=== PATIENT | female | born 1965 | race Caucasian/White ===

== ENCOUNTER 2016-10-29 03:41 | Emergency (ER) | payer OTHER ==
--- NOTE | ~2016-10-29 | CR72 ---
[facility]. [facility] A Service of [facility] & [facility] RADIOLOGY TEXT RESULTS PATIENT: LOGAN MARTINEZ LOCATION: SED : 69 UNIT #: [id number] AGE: [address]: Urbano Brownlee MD SEX: F ORDER DR: [id number] [place] [id number] E MR#: [id number] Acc #: [id number] NAME: LOGAN MARTINEZ : 1965 SEX: F STUDY DATE/TIME: 10/29/2016 6:29 UNIT: SED ROOM: STUDY DESCRIPTION: CR Chest Single View Portable Attending Physician: Urbano Brownlee M.D. Ordering Physician: Brandon Auguste M.D. Primary Care Physician: Primary Care Physician No MEDICAL IMAGING REPORT This report is preliminary unless electronic signature is present. EXAM Single view chest INDICATIONS Chest pain for 1 day. FINDINGS Single portable AP view chest compared to 11/02/2015. Heart and mediastinal contours are normal. Lungs are clear. No pleural effusion. IMPRESSION No acute cardiopulmonary findings. Dictated by... Livan Olsen M.D. THIS IS AN ELECTRONICALLY VERIFIED REPORT Livan Olsen M.D. at 10/29/2016 11:16 AM ASIM/misty TD: 10/29/2016 07:11 JOB #: [id number] MEDICAL IMAGING REPORT Page 1 of 1
--- NOTE | ~2016-10-29 | EKG ---
PATIENT: LOGAN MARTINEZ UNIT #: [id number] Ventricular Rate: 85 BPM Atrial Rate: 85 BPM P-R Interval: 140 ms QRS Duration: 78 ms Q-T Interval: 358 ms QTC Calculation(Bezet): 426 ms P Ross: 8 degrees Calculated R Ross: 13 degrees Calculated T Ross: 13 degrees Diagnosis Line: Normal sinus rhythm Diagnosis Line: Normal ECG Diagnosis Line: No previous ECGs available Diagnosis Line: Confirmed by ЮЛИЯ MAGALLON MD ([id number]) on 10/30/2016 Diagnosis Line: 10:01:11 AM INTERPRETING MD: NAUN MASTERS
[~2016-10-29 03:41] MED LIST: ALLEGRA-D1 TAB.SR1 PO; GLUCOPHAGE XR500 MG PO; K-DUR20 ME1 PO; LIPITOR PO; PREDNISONE PO; PRINIVIL10 MG PO; ROBAXIN 750750 M1 DOB; ZITHROMAX PO; ZOFRAN ODT4 MG PO
[2016-10-29 04:20] LABS: BASOPHIL% 0.5 % (0-2.5); EOSINOPHIL# 0.1 X10e3 (0-0.7); EOSINOPHIL% 1.5 % (0.0-7.0); HEMATOCRIT 36.9 % (35.0-45.0); HEMOGLOBIN 12.1 gm/dL (12.0-16.0); LYMPHOCYTE# 2.4 X10e3 (1.0-3.5); MEAN CORPUSCULAR HEMOGLOBIN 27.5 PG (28-34); MEAN CORPUSCULAR HGB CONC 32.7 g/dL (30-36); MEAN PLATELET VOLUME 7.5 FL (6.5-11.5); MONOCYTE# 0.5 X10e3 (0-1.0); NEUTROPHIL# 5.8 X10e3 (1.5-7.1); PLATELET COUNT 317 X10e3 (140-420); RED CELL DISTRIBUTION WIDTH 13.2 % (11.0-15.5); WHITE BLOOD COUNT 8.9 X10e3 (4.0-10.5)
[2016-10-29 04:20] LABS: POC - CKMB <1.0 ng/mL (0.0-7.9); POC - TROPONIN <0.05 ng/mL (<=0.05)
[2016-10-29 04:21] LABS: DIFF IND NO
[2016-10-29 04:30] LABS: PROTHROMBIN TIME (PATIENT) 11.5 SECONDS (9.5-12.4)
[2016-10-29 04:37] LABS: PARTIAL THROMBOPLASTIN TIME 29.4 SECONDS (25.6-38.1)
[2016-10-29 04:39] LABS: ALBUMIN SERUM 4.2 g/dL (3.5-5.0); BILIRUBIN, DIRECT 0.1 mg/dL (0.0-0.2); BILIRUBIN,TOTAL 0.1 mg/dL (0.2-2.0); CALCIUM SERUM 9.9 mg/dL (8.4-10.2); CREATININE SERUM 0.5 mg/dL (0.6-1.4); GLOM FILT RATE Estimated 113.7 mL/min (>60); POTASSIUM 3.9 mmol/L (3.5-5.1); PROTEIN TOTAL SERUM 7.3 g/dL (6.0-8.3)
[2016-10-29 06:39] LABS: POC - CKMB <1.0 ng/mL (0.0-7.9); POC - TROPONIN <0.05 ng/mL (<=0.05)
== END 2016-10-29 07:22 | disposition home or self-care (01) ==
LOC: SED 03:41
PROVIDERS: Emergency Medicine
DX: R07.89 Other chest pain (principal); I10 Essential (primary) hypertension; E78.5 Hyperlipidemia, unspecified; E11.9 Type 2 diabetes mellitus without complications; F17.210 Nicotine dependence, cigarettes, uncomplicated; Z79.899 Other long term (current) drug therapy; Z79.84 Long term (current) use of oral hypoglycemic drugs; Z88.1 Allergy status to other antibiotic agents
CPT/HCPCS: 36415; 71010; 80048; 80076; 82553; 84484; 85025; 85379; 85610; 85730; 93005; 96374; 99284; J1885

== ENCOUNTER 2016-11-04 19:34 | Emergency (ER) | payer OTHER ==
--- NOTE | ~2016-11-04 | EKG ---
PATIENT: LOGAN MARTINEZ UNIT #: [id number] Ventricular Rate: 109 BPM Atrial Rate: 109 BPM P-R Interval: 128 ms QRS Duration: 86 ms Q-T Interval: 328 ms QTC Calculation(Bezet): 441 ms P White: 7 degrees Calculated R White: 43 degrees Calculated T White: 52 degrees Diagnosis Line: Sinus tachycardia Diagnosis Line: Otherwise normal ECG Diagnosis Line: When compared with ECG of 29-OCT-2016 03:44, Diagnosis Line: No significant change was found Diagnosis Line: Confirmed by ЮЛИЯ MAGALLON MD ([id number]) on 11/06/2016 Diagnosis Line: 10:32:29 AM INTERPRETING MD: NAUN MASTERS
--- NOTE | ~2016-11-04 | CR72 ---
[facility] A Service of [facility] RADIOLOGY TEXT RESULTS PATIENT: LOGAN MARTINEZ LOCATION: [facility] UNIT : 69 UNIT #: [id number] AGE: [address]: Jordy Cardenas MD SEX: F ORDER DR: [id number] [place], [place] [address] [id number] E MR#: [id number] Acc #: [id number] NAME: LOGAN MARTINEZ : 1965 SEX: F STUDY DATE/TIME: 11/04/2016 20:19 UNIT: [facility] ROOM: STUDY DESCRIPTION: CR Chest Single View Portable Attending Physician: Jordy Cardenas M.D. Ordering Physician: [facility] Primary Care Physician: Leigha Pepper A.P.R.N. MEDICAL IMAGING REPORT This report is preliminary unless electronic signature is present EXAM Chest x-ray single-view portable HISTORY Chest pain started a week ago, worse today. History of seasonal allergies and smoking. TECHNIQUE Single frontal portable view of the chest timed 20:19 11/04/2016 reviewed. COMPARISON STUDIES No prior. FINDINGS There is normal heart size. There is no acute-appearing parenchymal infiltrate acute congestive failure, pneumothorax, pleural effusion. IMPRESSION No active disease. Dictated by... Adelina Jackson M.D. THIS IS AN ELECTRONICALLY VERIFIED REPORT Adelina Jackson M.D. at 11/04/2016 9:33 PM SAC/pcl TD: 11/04/2016 21:24 JOB #: [id number] MEDICAL IMAGING REPORT [facility] A Service of [facility] RADIOLOGY TEXT RESULTS PATIENT: LOGAN MARTINEZ LOCATION: [facility] UN[facility] : 69 UNIT #: [id number] AGE: [address]: Jordy Cardenas MD SEX: F ORDER DR: Page 1 of 1 COPY
[2016-11-04 20:15] LABS: BASOPHIL% 0.2 % (0-2.5); EOSINOPHIL# 0.2 X10e3 (0-0.7); EOSINOPHIL% 1.3 % (0.0-7.0); HEMATOCRIT 40.6 % (35.0-45.0); HEMOGLOBIN 13.4 gm/dL (12.0-16.0); LYMPHOCYTE# 1.1 X10e3 (1.0-3.5); LYMPHOCYTE% 8.9 % (17.0-45.0); MEAN CELL VOLUME 83.4 FL (83-96); MEAN CORPUSCULAR HEMOGLOBIN 27.4 PG (28-34); MEAN CORPUSCULAR HGB CONC 32.9 g/dL (30-36); MEAN PLATELET VOLUME 7.5 FL (6.5-11.5); MONOCYTE# 0.5 X10e3 (0-1.0); MONOCYTE% 4.4 % (3.0-12.0); NEUTROPHIL# 10.3 X10e3 (1.5-7.1); NEUTROPHIL% 85.2 % (40-75); PLATELET COUNT 313 X10e3 (140-420); RED BLOOD COUNT 4.87 X10e (3.90-5.30); RED CELL DISTRIBUTION WIDTH 13.7 % (11.0-15.5); WHITE BLOOD COUNT 12.1 X10e3 (4.0-10.5)
[2016-11-04 20:28] LABS: DIFF IND NO
[2016-11-04 20:33] LABS: POC - CKMB <1.0 ng/mL (0.0-7.9); POC - TROPONIN <0.05 ng/mL (<=0.05)
[2016-11-04 20:50] LABS: ALBUMIN SERUM 4.3 g/dL (3.5-5.0); BILIRUBIN, DIRECT 0.1 mg/dL (0.0-0.2); BILIRUBIN,INDIRECT 0.6 mg/dL (0.0-0.9); BILIRUBIN,TOTAL 0.7 mg/dL (0.2-2.0); BUN/CREATININE RATIO 47.5; CALCIUM SERUM 9.2 mg/dL (8.4-10.2); CREATININE SERUM 0.4 mg/dL (0.6-1.4); GLOM FILT RATE Estimated 122.3 mL/min (>60); PROTEIN TOTAL SERUM 7.1 g/dL (6.0-8.3)
[2016-11-04 22:52] LABS: POC - CKMB <1.0 ng/mL (0.0-7.9); POC - TROPONIN <0.05 ng/mL (<=0.05)
== END 2016-11-04 23:26 | disposition home or self-care (01) ==
LOC: CED 19:34
PROVIDERS: Emergency Medicine
DX: R07.89 Other chest pain (principal); E11.9 Type 2 diabetes mellitus without complications; I10 Essential (primary) hypertension; F17.200 Nicotine dependence, unspecified, uncomplicated; Z79.899 Other long term (current) drug therapy
CPT/HCPCS: 71010; 80048; 80076; 82553; 84484; 85025; 93005; 99284

== ENCOUNTER → 2016-11-21 | Outpatient (CLI) | payer OTHER ==
[~2016-11-21] MED LIST changes: +ASPIRIN81 M2 PO; +NAPROXEN PO; +ULTRAM PO
--- NOTE | ~2016-11-21 | MY11 ---
[facility] A Service of [facility] RADIOLOGY TEXT RESULTS PATIENT: LOGAN MRATINEZ LOCATION: [facility] : 69 UNIT #: [id number] AGE: [address]: Leigha Pepper SEX: F ORDER DR: [id number] [facility] [address] [place], [place] [address] [id number] O MR#: [id number] Acc #: [id number] NAME: LOGAN MARTINEZ. : 1965 SEX: F STUDY DATE/TIME: 11/21/2016 7:56 UNIT: [facility] ROOM: STUDY DESCRIPTION: MY Mammogram Screening Dig Riley Attending Physician: Leigha Pepper A.P.R.N. Referring Physician: Leigha Pepper A.P.R.N. Ordering Physician: Leigha Pepper A.P.R.N. Primary Care Physician: Leigha Pepper A.P.R.N. MEDICAL IMAGING REPORT This report is preliminary unless electronic signature is present EXAM Bilateral digital screening mammogram DATE 11/21/2016 HISTORY 51-year-old female with no documented personal or family history of breast cancer or current complaints. Patient states her nipples are chronically inverted. COMPARISON None. This is the patient's baseline screening study. FINDINGS CC and MLO views were obtained of each breast utilizing digital technique and reviewed with an FDA-approved CAD device. Heterogeneously dense fibroglandular tissue is present bilaterally, which can limit sensitivity of mammography. No focal suspicious nodule, architectural distortion, or clustered microcalcification is identified on this examination. There is no abnormal skin thickening. IMPRESSION 1. BIRADS category 2. Benign findings. Routine bilateral screening mammogram is recommended in 1 year. Patient's over the age of 40 are entered into a reminder system with target due date for the next mammogram. BIRADS: 2 Benign findings [facility] A Service of [facility] & [facility] RADIOLOGY TEXT RESULTS PATIENT: LOGAN MARTINEZ LOCATION: [facility] : 69 UNIT #: [id number] AGE: [address]: Leigha Pepper SEX: F ORDER DR: Dictated by... Christiane Joaquin M.D. THIS IS AN ELECTRONICALLY VERIFIED REPORT Christiane Joaquin M.D. at 11/21/2016 4:35 PM CAROLYNN/dariana TD: 11/21/2016 12:05 JOB #: [id number] MEDICAL IMAGING REPORT Page 1 of 1 COPY
== END | disposition home or self-care (01) ==
LOC: CWCC 11-20 07:30
DX: Z12.31 Encounter for screening mammogram for malignant neoplasm of breast (principal)
CPT/HCPCS: G0202

== ENCOUNTER 2016-12-03 06:21 | Emergency (ER) | payer OTHER ==
--- NOTE | ~2016-12-03 | EKG ---
PATIENT: LOGAN MARTINEZ UNIT #: [id number] Ventricular Rate: 85 BPM Atrial Rate: 85 BPM P-R Interval: 146 ms QRS Duration: 80 ms Q-T Interval: 384 ms QTC Calculation(Bezet): 456 ms P [place]: -5 degrees Calculated R [place]: 29 degrees Calculated T [place]ow: 25 degrees Diagnosis Line: Normal sinus rhythm Diagnosis Line: Normal ECG Diagnosis Line: When compared with ECG of 04-NOV-2016 19:32, Diagnosis Line: No significant change was found Diagnosis Line: Confirmed by STACIE SIERRA MD ([id number]) on Diagnosis Line: 12/10/2016 8:28:32 AM INTERPRETING MD: RIGO MASTERS
[~2016-12-03 06:21] MED LIST changes: -ASPIRIN81 M2 PO; -NAPROXEN PO; -ULTRAM PO
[2016-12-03] MEDS ORDERED: ASPIRIN81 M2 PO (06:29)
[2016-12-03] MEDS ORDERED: NAPROXEN PO (06:30)
[2016-12-03 07:12] LABS: URINE SOURCE CLEAN CATCH
[2016-12-03 07:15] LABS: URINE APPEARANCE CLOUDY; URINE BLOOD 3+ (NEG); URINE COLOR YELLOW; URINE GLUCOSE NEG (NORM); URINE KETONE TRACE (NEG); URINE LEUKOCYTE ESTERASE TRACE (NEG); URINE NITRATE NEG (NEG); URINE PROTEIN 2+ (NEG); URINE SPECIFIC GRAVITY >=1.030 (1.003-1.035); URINE UROBILINOGEN 0.2 MG/DL (NORM)
[2016-12-03 07:18] LABS: MICRO INDICATED? YES; URINE BILIRUBIN NEG (NEG)
[2016-12-03 07:20] LABS: BASOPHIL# 0.1 X10e3 (0-0.3); BASOPHIL% 0.6 % (0-2.5); EOSINOPHIL# 0.1 X10e3 (0-0.7); EOSINOPHIL% 1.2 % (0.0-7.0); HEMATOCRIT 38.5 % (35.0-45.0); HEMOGLOBIN 12.6 gm/dL (12.0-16.0); LYMPHOCYTE# 2.7 X10e3 (1.0-3.5); LYMPHOCYTE% 22.3 % (17.0-45.0); MEAN CELL VOLUME 82.9 FL (83-96); MEAN CORPUSCULAR HEMOGLOBIN 27.1 PG (28-34); MEAN CORPUSCULAR HGB CONC 32.7 g/dL (30-36); MEAN PLATELET VOLUME 7.8 FL (6.5-11.5); MONOCYTE# 0.7 X10e3 (0-1.0); MONOCYTE% 5.7 % (3.0-12.0); NEUTROPHIL# 8.5 X10e3 (1.5-7.1); NEUTROPHIL% 70.2 % (40-75); PLATELET COUNT 347 X10e3 (140-420); RED BLOOD COUNT 4.65 X10e (3.90-5.30); RED CELL DISTRIBUTION WIDTH 14.1 % (11.0-15.5); WHITE BLOOD COUNT 12.1 X10e3 (4.0-10.5)
[2016-12-03 07:21] LABS: DIFF IND NO
[2016-12-03 07:23] LABS: CULTURE INDICATED? YES; URINE BACTERIA 4+ (NEG); URINE RBC 100-200 /[HPF] (0-2); URINE SQUAMOUS EPITHELIAL CELL MANY /[HPF]
[2016-12-03 07:35] LABS: ALBUMIN SERUM 4.8 g/dL (3.5-5.0); BILIRUBIN, DIRECT 0.4 mg/dL (0.0-0.2); BILIRUBIN,INDIRECT 1.2 mg/dL (0.0-0.9); BILIRUBIN,TOTAL 1.6 mg/dL (0.2-2.0); BUN/CREATININE RATIO 12.14; CALCIUM SERUM 9.3 mg/dL (8.4-10.2); CREATININE SERUM 1.4 mg/dL (0.6-1.4); POTASSIUM 4.5 mmol/L (3.5-5.1); PROTEIN TOTAL SERUM 7.7 g/dL (6.0-8.3)
== END 2016-12-03 08:17 | disposition home or self-care (01) ==
LOC: SED 06:21
PROVIDERS: Emergency Medicine
DX: N39.0 Urinary tract infection, site not specified (principal); R42 Dizziness and giddiness; E11.9 Type 2 diabetes mellitus without complications; I10 Essential (primary) hypertension; Z98.51 Tubal ligation status; F17.200 Nicotine dependence, unspecified, uncomplicated; Z79.899 Other long term (current) drug therapy; Z79.82 Long term (current) use of aspirin
CPT/HCPCS: 36415; 80048; 80076; 81003; 83690; 85025; 87086; 93005; 96361; 96374; 96375; 99284; J0696; J2405

== ENCOUNTER 2016-12-30 18:28 | Emergency (ER) | payer OTHER ==
[~2016-12-30 18:28] MED LIST changes: +ASPIRIN81 M2 PO; +NAPROXEN PO
[2016-12-30 19:44] LABS: URINE SOURCE CLEAN CATCH
[2016-12-30 19:46] LABS: BASOPHIL% 0.4 % (0-2.5); EOSINOPHIL# 0.2 X10e3 (0-0.7); EOSINOPHIL% 1.9 % (0.0-7.0); HEMATOCRIT 37.5 % (35.0-45.0); HEMOGLOBIN 12.5 gm/dL (12.0-16.0); LYMPHOCYTE% 20.6 % (17.0-45.0); MEAN CELL VOLUME 82.2 FL (83-96); MEAN CORPUSCULAR HEMOGLOBIN 27.3 PG (28-34); MEAN CORPUSCULAR HGB CONC 33.2 g/dL (30-36); MEAN PLATELET VOLUME 7.5 FL (6.5-11.5); MONOCYTE# 0.6 X10e3 (0-1.0); NEUTROPHIL# 7.1 X10e3 (1.5-7.1); NEUTROPHIL% 71.1 % (40-75); PLATELET COUNT 332 X10e3 (140-420); RED BLOOD COUNT 4.57 X10e (3.90-5.30); RED CELL DISTRIBUTION WIDTH 14.6 % (11.0-15.5)
[2016-12-30 19:47] LABS: MICRO INDICATED? YES; URINE APPEARANCE CLEAR; URINE BILIRUBIN NEG (NEG); URINE BLOOD 1+ (NEG); URINE COLOR YELLOW; URINE GLUCOSE NEG (NORM); URINE KETONE NEG (NEG); URINE LEUKOCYTE ESTERASE NEG (NEG); URINE NITRATE NEG (NEG); URINE PROTEIN NEG (NEG); URINE SPECIFIC GRAVITY >=1.030 (1.003-1.035); URINE UROBILINOGEN 0.2 MG/DL (NORM)
[2016-12-30 19:48] LABS: DIFF IND NO
[2016-12-30 19:53] LABS: CULTURE INDICATED? NO; URINE BACTERIA NEG (NEG); URINE HYALINE CAST 0-2 /[HPF]; URINE MUCUS PRESENT; URINE SQUAMOUS EPITHELIAL CELL OCCAS /[HPF]
[2016-12-30 19:57] LABS: ALBUMIN SERUM 4.4 g/dL (3.5-5.0); ALKALINE PHOSPHATASE 63 U/L (32-92); ALT (SGPT) 13 U/L (10-40); AMYLASE 41 U/L (0-46); AST (SGOT) 14 U/L (10-42); BILIRUBIN,TOTAL 0.2 mg/dL (0.2-2.0); BLOOD UREA NITROGEN 15 mg/dL (9-23); CALCIUM SERUM 9.1 mg/dL (8.4-10.2); CARBON DIOXIDE 24 mmol/L (22-31); CHLORIDE 103 mmol/L (100-111); CREATININE SERUM 0.6 mg/dL (0.6-1.4); GLUCOSE FASTING 144 mg/dL (70-110); LIPASE 35 U/L (22-51); POTASSIUM 4.3 mmol/L (3.5-5.1); PROTEIN TOTAL SERUM 7.4 g/dL (6.0-8.3); SODIUM 135 mmol/L (135-145)
[2016-12-30 19:58] LABS: BILIRUBIN, DIRECT <0.1 mg/dL (0.0-0.2); BILIRUBIN,INDIRECT 0.1 mg/dL (0.0-0.9)
== END 2016-12-30 20:20 | disposition home or self-care (01) ==
LOC: SED 18:28
PROVIDERS: Student in an Organized Health Care Education/Training Program
DX: R11.2 Nausea with vomiting, unspecified (principal); R19.7 Diarrhea, unspecified; E11.9 Type 2 diabetes mellitus without complications; E78.5 Hyperlipidemia, unspecified; F17.200 Nicotine dependence, unspecified, uncomplicated; Z79.82 Long term (current) use of aspirin; Z79.899 Other long term (current) drug therapy
CPT/HCPCS: 36415; 80048; 80076; 81003; 82150; 83690; 85025; 96361; 96374; 96375; 99284; C9113; J2405

== ENCOUNTER 2017-01-21 03:12 | Emergency (ER) | payer OTHER ==
[~2017-01-21] VITALS: Ht 167.6 cm; Wt 83.9 kg
--- NOTE | ~2017-01-21 | EKG ---
PATIENT: LOGAN MARTINEZ UNIT #: [id number] Ventricular Rate: 85 BPM Atrial Rate: 85 BPM P-R Interval: 136 ms QRS Duration: 82 ms Q-T Interval: 358 ms QTC Calculation(Bezet): 426 ms P [place]: -3 degrees Calculated R [place]: 42 degrees Calculated T [place]: 42 degrees Diagnosis Line: Normal sinus rhythm Diagnosis Line: Normal ECG Diagnosis Line: When compared with ECG of 03-DEC-2016 07:39, Diagnosis Line: No significant change was found Diagnosis Line: Confirmed by STACIE SIERRA MD ([id number]) on Diagnosis Line: 01/21/2017 2:15:23 PM INTERPRETING MD: RIGO MASTERS
--- NOTE | ~2017-01-21 | CR2 ---
[facility] A Service of [facility] RADIOLOGY TEXT RESULTS PATIENT: LOGAN MARTINEZ LOCATION: SED : 69 UNIT #: [id number] AGE: [address]: Moshe Ponce MD SEX: F ORDER DR: [id number] [place] [id number] E MR#: [id number] Acc #: [id number] NAME: LOGAN MARTINEZ : 1965 SEX: F STUDY DATE/TIME: 01/21/2017 4:21 UNIT: SED ROOM: STUDY DESCRIPTION: CR Abdomen Acute Series Attending Physician: Moshe Ponce M.D. Ordering Physician: Moshe Ponce M.D. Primary Care Physician: Leigha Pepper A.P.R.N. MEDICAL IMAGING REPORT This report is preliminary unless electronic signature is present. EXAMINATION Acute abdominal series. DATE 01/21/2017 HISTORY 51-year-old female with mid abdominal pain, throat pain, nausea, and vomiting since yesterday. COMPARISON AP portable chest, 11/04/2016. No prior abdominal imaging at this institution for comparison. FINDINGS No acute airspace disease. Heart size within normal limits. No pleural effusion or pneumothorax. Lumbar levoscoliosis. Nonspecific nonobstructive bowel gas pattern. No pneumatosis or free intraperitoneal air. Mild left hip and left sacroiliac joint degenerative change. IMPRESSION 1. No acute findings in the chest or abdomen. 2. Lumbar levoscoliosis with degenerative change of the left hip. Dictated by... Christiane Joaquin M.D. THIS IS AN ELECTRONICALLY VERIFIED REPORT Christiane Joaquin M.D. at 01/21/2017 9:[address] [facility]/leila TD: 01/21/2017 07:34 [facility] A Service [facility] RADIOLOGY TEXT RESULTS PATIENT: LOGAN MARTINEZ LOCATION: SED : 69 UNIT #: [id number] AGE: [address]: Moshe Ponce MD SEX: F ORDER DR: JOB #: [id number] MEDICAL IMAGING REPORT Page 1 of 1
[2017-01-21] MEDS ORDERED: ULTRAM PO (03:22)
[2017-01-21 03:46] LABS: BASOPHIL% 0.3 % (0-2.5); EOSINOPHIL# 0.1 X10e3 (0-0.7); EOSINOPHIL% 1.2 % (0.0-7.0); HEMATOCRIT 37.4 % (35.0-45.0); HEMOGLOBIN 12.2 gm/dL (12.0-16.0); LYMPHOCYTE# 1.9 X10e3 (1.0-3.5); LYMPHOCYTE% 15.5 % (17.0-45.0); MEAN CELL VOLUME 82.8 FL (83-96); MEAN CORPUSCULAR HEMOGLOBIN 27.1 PG (28-34); MEAN CORPUSCULAR HGB CONC 32.7 g/dL (30-36); MEAN PLATELET VOLUME 7.5 FL (6.5-11.5); MONOCYTE# 0.6 X10e3 (0-1.0); MONOCYTE% 4.6 % (3.0-12.0); NEUTROPHIL# 9.6 X10e3 (1.5-7.1); NEUTROPHIL% 78.4 % (40-75); PLATELET COUNT 314 X10e3 (140-420); RED BLOOD COUNT 4.52 X10e (3.90-5.30); RED CELL DISTRIBUTION WIDTH 14.7 % (11.0-15.5); WHITE BLOOD COUNT 12.2 X10e3 (4.0-10.5)
[2017-01-21 03:47] LABS: DIFF IND NO
[2017-01-21 04:01] LABS: BILIRUBIN,TOTAL 0.6 mg/dL (0.2-2.0); BUN/CREATININE RATIO 23.12; CALCIUM SERUM 9.4 mg/dL (8.4-10.2); CREATININE SERUM 1.6 mg/dL (0.6-1.4); GLOM FILT RATE Estimated 37.5 mL/min (>60)
[2017-01-21 04:08] LABS: POC - CKMB <1.0 ng/mL (0.0-7.9); POC - TROPONIN <0.05 ng/mL (<=0.05)
[2017-01-21 05:03] LABS: URINE SOURCE CLEAN CATCH
[2017-01-21 05:06] LABS: URINE APPEARANCE HAZY; URINE BLOOD 1+ (NEG); URINE COLOR YELLOW; URINE GLUCOSE NEG (NORM); URINE KETONE TRACE (NEG); URINE LEUKOCYTE ESTERASE NEG (NEG); URINE NITRATE NEG (NEG); URINE PROTEIN TRACE (NEG); URINE SPECIFIC GRAVITY >=1.030 (1.003-1.035); URINE UROBILINOGEN 0.2 MG/DL (NORM)
[2017-01-21 05:07] LABS: MICRO INDICATED? YES; URINE BILIRUBIN NEG (NEG)
[2017-01-21 05:10] LABS: CULTURE INDICATED? YES; URINE BACTERIA 1+ (NEG); URINE MUCUS PRESENT; URINE SQUAMOUS EPITHELIAL CELL MODERATE /[HPF]
[2017-01-21 05:16] LABS: AMPHETAMINE NEG (NEG); BARBITURATES NEG (NEG); BENZODIAZEPINES NEG (NEG); COCAINE NEG (NEG); MARIJUANA NEG (NEG); OPIATES NEG (NEG); TRICYCLIC ANTIDEPRESSANTS POS (NEG); U METHADONE NEG (NEG)
== END 2017-01-21 05:42 | disposition home or self-care (01) ==
LOC: SED 03:12
DX: R11.2 Nausea with vomiting, unspecified (principal); E78.5 Hyperlipidemia, unspecified; E11.9 Type 2 diabetes mellitus without complications; I10 Essential (primary) hypertension; F17.200 Nicotine dependence, unspecified, uncomplicated; Z79.84 Long term (current) use of oral hypoglycemic drugs; Z79.899 Other long term (current) drug therapy; Z79.82 Long term (current) use of aspirin; Z79.891 Long term (current) use of opiate analgesic
CPT/HCPCS: 74022; 80053; 80307; 81003; 82553; 83690; 84484; 85025; 87086; 93005; 96374; 99284; J2405